=== PATIENT | male | born 1995 | race Caucasian/White ===

== ENCOUNTER 2020-11-06 22:47 | Emergency (ER) | payer SELFPAY ==
[~2020-11-06] VITALS: Ht 185.4 cm; Wt 87.0 kg
[2020-11-07 01:30] VITALS: BP 141/74
== END 2020-11-07 01:31 | disposition home or self-care (01) ==
LOC: ER 22:47
DX: R07.89 Other chest pain (principal); R42 Dizziness and giddiness; K92.0 Hematemesis
CPT/HCPCS: 71045; 93005; 99283

== ENCOUNTER 2020-12-25 02:05 | Emergency (ER) | payer OTHER ==
[~2020-12-25] VITALS: Ht 190.5 cm; Wt 91.0 kg
[2020-12-25] MEDS ORDERED: KETOROLAC 60MG/2ML VIAL IM STA (02:51)
[2020-12-25 03:06] LABS: BASOPHILS % 0.2 % (0.0-2.0); EOSINOPHILS % 1.8 % (0.0-5.0); HEMOGLOBIN. 15.4 g/dL (14.0-18.0); LYMPHOCYTES % 30.7 % (20.0-50.0); MEAN CORPUSCULAR HEMOGLOBIN 31.8 pg (28.0-32.0); MEAN CORPUSCULAR VOLUME 88.7 fL (80.0-94.0); MEAN PLATELET VOLUME 7.4 fl (7.4-10.4); MONOCYTES % 8.9 % (2.0-8.0); NEUTROPHILS % 58.4 % (40.0-76.0); PLATELET 166 x1000/uL (130-400); RED BLOOD CELL COUNT 4.85 mill/uL (4.7-6.1); RED CELL DISTRIBUTION WIDTH 12.8 % (11.6-14.6)
[2020-12-25 03:12] LABS: CHLORIDE 108 mEq/L (98-107)
[2020-12-25 03:17] LABS: ETHANOL BLOOD < 10 mg/dL
[2020-12-25 04:14] LABS: CLARITY URINE CLEAR (CLEAR); COLOR URINE YELLOW (YELLOW); KETONES URINE NEGATIVE (NEGATIVE); LEUKOCYTE ESTERASE URINE NEGATIVE (NEGATIVE); NITRITE URINE NEGATIVE (NEGATIVE); OCCULT BLOOD URINE NEGATIVE (NEGATIVE); PH URINE 6.5 (4.5-8.0); PROTEIN URINE NEGATIVE (NEGATIVE); SPECIFIC GRAVITY URINE 1.011 (1.005-1.030)
[2020-12-25 04:24] LABS: *BENZODIAZEPINES SCREEN URINE NEGATIVE (NEGATIVE); *COCAINE SCREEN URINE NEGATIVE (NEGATIVE); METHADONE URINE SCREEN NEGATIVE (NEGATIVE); OPIATES URINE SCREEN NEGATIVE (NEGATIVE)
[2020-12-25 04:25] LABS: *AMPHETAMINES SCREEN URINE NEGATIVE (NEGATIVE); *BARBITURATES SCREEN URINE NEGATIVE (NEGATIVE); CANNABINOID URINE SCREEN NEGATIVE (NEGATIVE); PHENCYCLIDINE URINE SCREEN NEGATIVE (NEGATIVE)
[2020-12-25 04:30] VITALS: BP 136/68
== END 2020-12-25 04:31 | disposition home or self-care (01) ==
LOC: ER 02:05
DX: R10.9 Unspecified abdominal pain (principal)
CPT/HCPCS: 36415; 80053; 80305; 80320; 81003; 83690; 85025; 96372; 99283; J1885; G0480